=== PATIENT | female | born 1985 | race Caucasian/White ===

== ENCOUNTER 2018-06-09 07:36 | Emergency (ER) | payer BC, SELFPAY ==
[2018-06-09 07:38] VITALS: BP 179/90; PULSE 76; RESP 18; TEMP 36.4; O2SAT 99; BMI 40.6
--- NOTE | 2018-06-09 07:50 | ED.VISSUMM ---
- ER Visit Summary Date of Service: 06/09/18 Chief Complaint: Abdominal pain History of Present Illness: The patient is a [address] Sarkis lowry. She reports that she has upper abdominal pain that began proximal 22 hours ago. States that she has had this intermittently since February when she was diagnosed with gallstones. She has not seen a surgeon. She describes the pain as a sharp, cramping pain Zeta 10 hours and 7-10 currently. Is worsened by nothing is relieved by nothing. She has been nausea and vomited 5 times. No blood or emesis. Her last bowel was yesterday. No melena hematochezia. No dysuria or frequency. Last much previous 4 days ago. No fever chills. Patient reports approximately 2 hours prior to the onset of the pain she ate a salad with chicken favio and cookies. Physical Examination: Vitals: Stable. Afebrile. General: Well-nourished and well-developed. Head: Normocephalic atraumatic. Neck: Supple, no lymphadenopathy. No JVD. Nontender. Cardiovascular: Regular rate and rhythm. No murmurs. Respiratory: No respiratory distress. Clear to auscultation bilaterally. Abdominal: Soft, mild epigastric tenderness to palpation, nondistended, normal bowel sounds. No guarding, rebound, or peritoneal signs. Negative Miranda sign. Back: Nontender. Extremities: Nontender, no edema. Skin: Normal color, no rash. Neurologic: Alert and oriented ?3. Cranial nerves II through XII are intact. Normal strength and sensation. Psych: Normal affect. Test Results: CBC shows a white count of 13.6 with a normal differential. Chem-7 shows a glucose of 107. LFTs are normal. Lipase is normal. test is negative. Right upper quadrant ultrasound shows a normal distended gallbladder with a wall of 2.3 mm. No pericholecystic fluid. She does have gallstones. Common bile duct is 5.4 mm. Positive Miranda sign. Emergency Department Course and Treatment: Patient had an IV placed. She was given Toradol and Zofran IV. She continued to experience pain. She was given a dose of morphine and Zofran IV. She is resting comfortably. Treatment Plan: Patient reports her pain is resolved and would like to go home. She will be discharged with prescription for 10 [place] and Zofran. Instructed to follow-up with Dr. Marie as soon as possible for further evaluation and treatment. Return to the emergency department for any worsening symptoms. Disposition: To home in improved and stable condition. Impression: 1. Biliary colic. This note was generated with [employer] dictation software. It may contain incorrect words, spelling, and punctuation that were not noted in review of the chart prior to signing ED Disposition - Plan for ED Patient: Instructions: ED Abdominal Pain Gallstone Poss Prescriptions: Hydrocodone Bitart/Apap 5-325 [[place] 5MG-325MG] 1 tablet PO Q4H PRN PRN 2 Days #10 tablet PRN Reason: Pain Ondansetron [Zofran Odt] 4 mg PO Q8H PRN PRN #10 tablet PRN Reason: Nausea Referrals: Ameena Marie MD [STAFF PHYSICIAN] - As soon as possible
--- NOTE | 2018-06-09 07:53 | ED.DCSUM_ITS ---
- ER Visit Summary Date of Service: 06/09/18 Chief Complaint: Abdominal pain History of Present Illness: The patient is a [address] Sarkis lowry. She reports that she has upper abdominal pain that began proximal 22 hours ago. States that she has had this intermittently since February when she was diagnosed with gallstones. She has not seen a surgeon. She describes the pain as a sharp, cramping pain Zeta 10 hours and 7-10 currently. Is worsened by nothing is relieved by nothing. She has been nausea and vomited 5 times. No blood or emesis. Her last bowel was yesterday. No melena hematochezia. No dysuria or frequency. Last much previous 4 days ago. No fever chills. Patient reports approximately 2 hours prior to the onset of the pain she ate a salad with chicken favio and cookies. Physical Examination: Vitals: Stable. Afebrile. General: Well-nourished and well-developed. Head: Normocephalic atraumatic. Neck: Supple, no lymphadenopathy. No JVD. Nontender. Cardiovascular: Regular rate and rhythm. No murmurs. Respiratory: No respiratory distress. Clear to auscultation bilaterally. Abdominal: Soft, mild epigastric tenderness to palpation, nondistended, normal bowel sounds. No guarding, rebound, or peritoneal signs. Negative Miranda sign. Back: Nontender. Extremities: Nontender, no edema. Skin: Normal color, no rash. Neurologic: Alert and oriented ?3. Cranial nerves II through XII are intact. Normal strength and sensation. Psych: Normal affect. Test Results: CBC shows a white count of 13.6 with a normal differential. Chem- 7 shows a glucose of 107. LFTs are normal. Lipase is normal. test is negative. Right upper quadrant ultrasound shows a normal distended gallbladder with a wall of 2.3 mm. No pericholecystic fluid. She does have gallstones. Common bile duct is 5.4 mm. Positive Miranda sign. Emergency Department Course and Treatment: Patient had an IV placed. She was given Toradol and Zofran IV. She continued to experience pain. She was given a dose of morphine and Zofran IV. She is resting comfortably. Treatment Plan: Patient reports her pain is resolved and would like to go home. She will be discharged with prescription for 10 [place] and Zofran. Instructed to follow-up with Dr. Marie as soon as possible for further evaluation and treatment. Return to the emergency department for any worsening symptoms. Disposition: To home in improved and stable condition. Impression: 1. Biliary colic. This note was generated with [employer] dictation software. It may contain incorrect words, spelling, and punctuation that were not noted in review of the chart prior to signing ED Disposition - Plan for ED Patient: Instructions: ED Abdominal Pain Gallstone Poss Prescriptions: Hydrocodone Bitart/Apap 5-325 [[place] 5MG-325MG] 1 tablet PO Q4H PRN PRN 2 Days #10 tablet PRN Reason: Pain Ondansetron [Zofran Odt] 4 mg PO Q8H PRN PRN #10 tablet PRN Reason: Nausea Referrals: Ameena Marie MD [STAFF PHYSICIAN] - As soon as possible
[2018-06-09] MEDS: 0.9% Normal Saline 1,000 ML 1000 ML IV (08:01)
[2018-06-09] MEDS: Ondansetron 4 MG/2 ML Vial IV (08:01)
[2018-06-09] MEDS: Ketorolac 30 MG/ML Syringe IV (08:01)
[2018-06-09 08:16] LABS: Absolute Lymphocyte Count 3.83 X10^3/ul (0.83-4.51); Absolute Neutrophil Count 7.9 X10^3/uL (2.0-7.7); Basophil# 0.05 X10^3/uL; Basophil% 0.4 % (0-1); Eosinophil# 0.74 X10^3/uL; Eosinophils% 5.4 % (0-5); Hematocrit 42.8 % (37-47); Hemoglobin 14.2 g/dl (12.0-15.0); Lymphocyte # 3.83 X10^3/ul (4.0); Lymphocyte % 28.1 % (19-41); Mean Corp Hgb Conc 33.2 g/gl (32-36); Mean Corpuscular Hgb 29.9 pg (27.0-32.0); Mean Corpuscular Volume 90.1 fL (81-99); Mean Platelet Vol. 9.2 fl (6.2-12.0); Monocyte# 1.12 X10^3/uL; Monocyte% 8.2 % (0-10); Neutrophil # 7.86 X10^3/uL (2.7-7.7); Neutrophil % 57.7 % (47-70); Platelet Count 306 K/mm3 (150-450); RBC Distribution Width CV 13.5 % (11.6-14.6); RBC Distribution Width SD 45.1 fl (35.1-43.9); Red Blood Count 4.75 M/mm3 (4.2-5.4); White Blood Count 13.6 K/mm3 (4.4-11.0)
[2018-06-09 08:19] LABS: POSITIVE COUNT NO; POSITIVE DIFFERENTIAL NO; POSITIVE MORPHOLOGY NO
[2018-06-09 08:21] LABS: Internal QC Validated? YES +Cl - CLEAR BKGD; Pregnancy, Serum, hCG Quali. NEGATIVE Negative
[2018-06-09 08:28] LABS: ALB/GLOB Ratio 1.1 RATIO (0.9-2.4); AST(SGOT) 17 U/L (15-37); Alanine Aminotransfer ALT/SGPT 38 U/L (13-56); Albumin, Serum 4.3 g/dL (3.2-5.0); Alkaline Phosphatase 79 U/L (45-117); Anion Gap 7 (5-15); BUN 15 mg/dL (7-18); BUN/Creat Ratio 15.4 RATIO (10-20); Calcium,Total 9.2 mg/dL (8.5-10.1); Chloride 105 mmol/L (98-107); Creatinine, Serum 0.97 mg/dL (0.55-1.02); EST Glomerular Filtration Rate 70 mL/min (>60); Est Glom Filt Rate - Afr Amer 85 mL/min (>60); Estimated Creatinine Clearance 96.09 ml/min; Globulin 3.8 g/dL (2.2-4.2); Glucose 107 mg/dL (74-106); Lipase 87 U/L (73-393); Potassium 3.8 mmol/L (3.5-5.1); Protein, Total 8.1 g/dL (6.4-8.2); Sodium Level 138 mmol/L (136-145)
--- NOTE | 2018-06-09 08:40 | US_ITS ---
STUDY: ABDOMINAL ULTRASOUND - RIGHT UPPER QUADRANT REASON FOR VISIT: Female, 32 years old. One-day history of nausea and vomiting and epigastric pain. TECHNIQUE: Ultrasound evaluation of the right upper quadrant was performed with real-time and static estrada-scale imaging. TECHNICAL QUALITY: Adequate. COMPARISON: None. FINDINGS: Liver: The liver is enlarged and measures 22 cm. There is increased echogenicity consistent with fatty infiltration. The bile ducts are within normal limits. There is hepatic color flow. The direction of portal flow is hepatopetal. There is no demonstrated mass lesion. Gallbladder: Normal distended gallbladder. The gallbladder wall measures 2.3 mm. There is a positive sonographic Miranda's sign. There is no pericholecystic fluid. There are multiple echogenic structures within the gallbladder, consistent with multiple gallstones. Common Bile Duct (C.B.D.): The common bile duct measures 5.4 mm. Pancreas: Normal size of the head, body and tail of the pancreas. There is increased echogenicity of the pancreas. There is no demonstrated pancreatic mass or cyst. Right Kidney: Normal size of the right kidney. The right kidney measures 11.2 cm x 5.5 cm x 4.2 cm. Normal renal cortex. The right cortex measures 1.4 cm. There is no demonstrated renal mass or cyst. There is no right hydronephrosis. US/Gallbladder IMPRESSION: Hepatomegaly and fatty infiltration of the liver. Multiple gallstones. Electronically Signed: Mike Faith, at 10:33 EDT , Service support ,
[2018-06-09] MEDS: proMETHazine 25 MG/ML Syringe 6.25 MG IV (08:57)
[2018-06-09] MEDS: Morphine 4 MG/ML Syringe IV (08:57)
[2018-06-09 09:48] VITALS: RESP 18
[2018-06-09 10:56] VITALS: BP 123/74; PULSE 61; RESP 15; O2SAT 99
== END 2018-06-09 10:58 | disposition home or self-care (01) ==
PROVIDERS: Emergency Provider Emergency Medicine; Family Provider Family Medicine; PCP Family Medicine
DX: K80.70 Calculus of gallbladder and bile duct without cholecystitis without obstruction (principal); Z72.0 Tobacco use
CPT/HCPCS: 76705; 80053; 83690; 84703; 85025; 96361; 96374; 96375; 99283; J7030; A4216; J2405

== ENCOUNTER 2018-06-25 07:53 | Day surgery (SDC) | payer BC, SELFPAY ==
--- NOTE | 2018-06-19 18:44 | PCM.HP.BLA ---
History and Physical Date of Admission: 06/18/18 Mercedes Rivera 1985 ? ? CHIEF COMPLAINT: abdominal pain ? HPI: The patient is a 32 year old female presents with epigastric abdominal pain. Has noted this pain intermittently since February of this year. Also accompanying symptoms of nausea and occasional emesis. Presently has no pain. Mother also had gallbladder disease. Denies obstructive biliary symptoms such as jaundice or icterus. Denies fevers. Denies weight loss. [facility] US 06/09/18 - no pericholecystic fluid, multiple echogenic structures within the gallbladder, CBD 5.4mm ?? PAST MEDICAL HISTORY ? Thyroid activity decreased ? ? PAST SURGICAL HISTORY ? APPENDECTOMY ? 2014 ? SECTION HX ? ? ? D&C, DIAG AND/OR THERAPEUTIC ? Multiple ? Dilation & curettage ?? PAST INJURIES Denies head injuries, denies history of fractures ? ? Current Outpatient Medications: levothyroxine (SYNTHROID) 125 mcg tablet Take 125 mcg by mouth daily before breakfast. ? ? ALLERGIES: Patient has no known allergies. ? PERSONAL HISTORY: Social History Socioeconomic History Marital status: Single Spouse name: Not on file Number of children: Not on file Years of education: Not on file Highest education level: Not on file Social Needs Financial resource strain: Not on file Food insecurity - worry: Not on file Food insecurity - inability: Not on file Transportation needs - medical: Not on file Transportation needs - non-medical: Not on file Occupational History Not on file Tobacco Use Smoking status: Current Every Day Smoker Packs/day: 0.50 Years: 15.00 Pack years: 7.5 Types: Cigarettes Start date: 06/18/2002 Smokeless tobacco: Never Used Substance and Sexual Activity Alcohol use: No Drug use: No Sexual activity: Not on file Comment: Not asked Other Topics Concerns: Not on file Social History Narrative Not on file ? FAMILY HISTORY: Mother had gallbladder disease ? ? REVIEW OF SYSTEMS: General - denies fevers Cardiovascular - denies chest pain, denies history of [place] Pulmonary - denies shortness of breath, denies coughing up blood Gastrointestinal - see HPI Neurological - denies seizures Genitourinary - denies blood in urine Hematological - denies spontaneous/prolonged bleeding Skin - denies nonhealing skin wounds Musculoskeletal - denies chronic joint/back pain Endocrine - has hypothyroidism, denies diabetes Psychological ? denies hallucinations ? PHYSICAL EXAMINATION: General: The patient is 32 year old female, well nourished, well hydrated in no acute distress. The patient is oriented to time, place, and person. VITALS: Blood pressure 114/84, pulse 66, weight (!) 137.4 kg (303 lb). Ht: 6' Head ? Normocephalic. EOM intact with sclera clear and no icterus noted. Wearing glasses. Mouth with mucus membranes moist. Neck - supple with no jugular venous distention noted. Trachea is midline. Lungs ? clear to auscultation. Normal breath sounds. No rales/rhonchi/wheezing noted. No labored breathing noted, such as retractions. Heart ? normal S1 and S2 auscultated. No rubs/clicks/murmurs noted. Regular rate. Abdomen ? soft and benign and obese. No tenderness noted. Normal bowel sounds. No abdominal bruits noted. Difficult to determine if any masses due to body habitus Extremities ? no calf tenderness noted. No pitting edema noted Skin ? normal skin integrity. Neurological ? gait normal, no focal deficits noted Psych ? calm and appropriate RADIOLOGIC STUDIES: As Noted ? ? IMPRESSION: cholelithiasis ? PLAN: I have discussed the above with the patient. I have offered laparoscopic cholecystectomy, possible cholangiograms. I have explained the procedure to the patient. I have counseled the patient as to the risks of the procedure, including but not limited to: infection, bleeding, injury to any blood vessels/nerves, scar tissue, injury to any intrabdominal organs, injury to bowel/bladder, injury to the common bile duct/biliary tree, bile leakage, intraabdominal abscess/bleeding, hernias at incisional sites, wound infections, complications of anesthesia, etc. ? the patient understands. The patient wishes to proceed. I have answered all questions to the patient?s satisfaction and the patient has no further questions. . Diagnoses: (R10.13) Epigastric abdominal pain (primary encounter diagnosis) (K80.20) Calculus of gallbladder without cholecystitis without obstruction (E66.01) Morbid obesity (HCC) Return to Clinic: The patient is instructed to follow-up with me after the procedure. ? Ameena Marie MD
--- NOTE | 2018-06-25 08:06 | EKG12_ITS ---
Test Reason : PREOP Blood Pressure : / mmHG Vent. Rate : 068 BPM Atrial Rate : 068 BPM P-R Int : 188 ms QRS Dur : 090 ms QT Int : 424 ms P-R-T Axes : 067 089 046 degrees QTc Int : 450 ms Normal sinus rhythm Normal ECG Confirmed by HI SIGALA, MAUREEN ([id number]), advertising editor DEBBIE KENDRICK ([id number]) on 06/28/2018 4:32:40 PM Referred By: Ameena Marie Confirmed By:MAUREEN DO MD
[2018-06-25 08:40] VITALS: BP 132/70; PULSE 60; RESP 16; TEMP 36.4; O2SAT 97; BMI 40.8
--- NOTE | 2018-06-25 09:25 | GALL_PTH ---
PATIENT: SHREI MISTRY LOC: [facility] [place] U#:[id number] AGE/SX: 32/F ROOM: RE06/25/[address]: Dr. Ameena Marie MD : 1985 BED: DIS: 06/25/2018 SPEC #: [id number] RECD: 06/25/18 13:12 STATUS: JESSICA RELei #: [id number] CLIVE: 06/25/18 09:[address]: Ameena Marie DEPT: SURGICAL PATHOLOGY RECD BY: Kyle Johnson ENTERED: 06/25/18 14:15 SP TYPE: CLIFF[facility] YOUNG DR: Dr. Job Loving MD Tissues: Gallbladder, NOS Procedures: Surgery Specimen Level III HEADER OPERATION: Laparoscopic cholecystectomy PRE-OP DIAGNOSIS: Epigastric abdominal pain; calculus of gallbladder without cholecystitis or obstruction TISSUE SUBMITTED: Gallbladder MICROSCOPIC DIAGNOSIS Gallbladder, cholecystectomy: Cholesterolosis, chronic cholecystitis and cholelithiasis. AM:freeman 06/29/18 MICROSCOPIC DESCRIPTION Slides are reviewed. GROSS DESCRIPTION Received is one container labeled with the patient's name and designated gallbladder. The specimen consists of a gallbladder measuring 10 x 2.5 x 2.5 cm. The external surface is smooth and glistening. Focally, it is granular, hemorrhagic and contains cautery artifact. The lumen of the gallbladder contains yellow-green mucoid bile and four ovoid yellow calculi averaging 1.2 cm each. The mucosa is bile-stained with chalky yellow discoloration. The gallbladder wall averages 0.2 cm in thickness and is free of mass lesions. Dietary Server sections of the gallbladder and the cystic duct are submitted in one cassette. / AM:freeman 06/28/18 TC:3 CPT: 00835
--- NOTE | 2018-06-25 10:23 | PCM.OPRPT ---
Report of Operation Date of Procedure: 06/25/18 Pre-Operative Diagnosis: cholelithiasis, epigastric abdominal pain Post-Operative Diagnosis: epigastric abdominal pain, cholelithiasis, chronic cholecystitis, fatty liver changes Surgery/Procedure Performed:: laparoscopic cholecystectomy Description of Surgical Findings:: cholangiogram not done, appeared as short take off of cystic duct and was also embedded in enlarged fatty liver chairman & chief executive officer: Ashly Shah Type of Anesthesia:: General Anesthesiologist: Vin Nuñez Specimen's removed: gallbladder and contents Estimated Blood Loss (mL): < 10 Fluids Replaced: 800 cc RL Description of Procedure: After informed consent was given, the patient was brought to the Operating Room. Appropriate time out protocol was followed. She was then placed in the supine position. The patient was then placed under general endotracheal anesthesia. The abdomen was then prepped with a sterile surgical skin preparation and sterile surgical drapes were placed. A skin fold superior to the umbilical dimple was grasped with penetrating clamps and the skin and subcutaneous tissues were infiltrated with 0.25% marcaine with epinephrine. A skin incision was then made with a 15 blade scalpel. The anterior abdominal wall was elevated and a Veress needle was carefully inserted into the intraabdominal cavity. It was checked to be in the proper position with a normal saline drop test. A CO2 pneumoperitoneum was then created. Once this was achieved, then the Veress needle was removed and an 11mm trocar was placed in its stead. A 10mm laparoscope was then inserted into the trocar and careful attention was directed to the intraabdominal contents. There was no evidence of injury to any intraabdominal organs from insertion of the Veress needle or the trocar. Under direct visualization, a 5mm subxiphoid trocar and two lateral 5mm right subcostal trocars were placed. The skin and subcutaneous tissues at these sites were infiltrated with 0.25% marcaine with epinephrine prior to placement of these trocars. Attention was then directed to the right upper quadrant of the abdomen. The liver had changes consistent with fatty liver. There were dense fibrosis around the area of the triangle of Calot. Graspers were placed in the lateral trocars to grasp the distal aspect of the gallbladder and direct it cephalad and to grasp the gallbladder at Chatman?s pouch and direct it laterally. Dissection then began on the proximal gallbladder continuing down to the area of the triangle of Calot to bluntly dissect out the cystic duct. The neck of the gallbladder was identified and blunt dissection continued to dissect out a segment of the cystic duct. A clip was then placed on the neck of the gallbladder. Of note, this area was deeply embedded within a large fatty liver. Two clips were placed proximally and the cystic duct was then transected. The cystic artery was visualized and bluntly isolated and then two clips were placed proximally and one clip distally and then it was transected between the proximal and distal clips. The gallbladder was then from the liver bed using electrocautery and thus able to be brought out of the umbilical port. It was then forwarded to pathology for analysis. The liver bed was carefully examined. There was no evidence of bile leakage or bleeding. The cystic duct stump and cystic artery stump had their clips intact and there was no evidence of bile leakage or bleeding. Kathy was applied to the area. The remainder of the abdomen was grossly normal. The CO2 was released and all trocars removed intact. The periumbilical fascia was approximated with a [id number] 0 vicryl suture. All skin incision were closed with 4-0 monocryl in a subdermal fashion. Cavilol and Steristrips were used to reinforce the skin closure. Sterile dressings were applied to all wounds. The patient was extubated and brought to the Recovery Room in stable condition. - Complications none noted - Admit VTE Documentation VTE Present on Admission: Yes VTE Mechan Device Prophylaxis: SCD's
[2018-06-25] MEDS: Bupiv/Epi 0.25% 30 ML Vial (10:25)
--- NOTE | 2018-06-25 10:29 | PCM.DC.GB ---
Discharge Diet: No Restrictions - drink plenty of fluids avoid carbonated beverages for a couple of days Discharge Activity: Return to Normal Activity, May not drive while taking narcotic pain medications. Lifting Restrictions: no lifting/pushing/pulling greater than 20 pounds for 2 weeks Call your doctor if your incision/area has: Continuous Slow Oozing, Foul Smelling Discharge Call your doctor if you observe: Fever of 101 or Higher Additional Dressing/Incision Instructions:: Leave dressings in place. May get wet in shower. Do not soak - no tub baths/swimming Additional Instructions: recommended following medication regimen for pain: take 600 mg ibuprofen then in 3 hours take 650 mg acetaminophen, then in 3 hours take 600 mg ibuprofen, then in 3 hours take 650 mg acetaminophen, etc. for about 2 days take narcotic pain medication for breakthrough pain and also at night Allergies/Adverse Reactions: Allergies No Known Allergies Allergy (Verified 06/24/18 15:24) Medications to take at Discharge Levothyroxine [Synthroid] 125 mcg PO DAILY 06/09/18 Hydrocodone/Acetaminophen [[place] 5-325 Tablet] 1 ea PO Q8 PRN 5 Days #15 tab 06/25/18 The following prescriptions were given: Hydrocodone/Acetaminophen [[place] 5-325 Tablet] 1 ea PO Q8 PRN 5 Days #15 tab PRN Reason: Mod-Severe Pain (-11/18) Primary Care Physician: Job Loving MD [Primary Care Provider] - Test Results: Test results from this visit will be discussed in further detail at your follow-up appointment, if applicable. Please Follow Up With: Ameena Marie MD - call When: to be seen in 7-10 days, please call for date and time, thank you
[2018-06-25 10:36] VITALS: BP 132/70; BP 144/74; PULSE 86; RESP 16; TEMP 36.1; O2SAT 93
[2018-06-25 10:45] VITALS: BP 118/71; BP 132/70; PULSE 65; RESP 16; O2SAT 97
[2018-06-25 11:00] VITALS: BP 120/77; BP 132/70; PULSE 67; RESP 18; TEMP 36.1; O2SAT 97
[2018-06-25] MEDS: HYDROcodone Bitartrate/Apap 5/325 Tablet PO (12:00)
[2018-06-25 14:05] VITALS: BP 126/77; BP 132/70; PULSE 67; RESP 16; TEMP 36.6; O2SAT 97
== END 2018-06-25 14:20 | disposition home or self-care (01) ==
LOC: SDC 07:53 → AC 07:55
PROVIDERS: Anesthesiology; Family Provider Family Medicine; PCP Family Medicine; Referring Provider Surgery; Visit Provider Surgery
PROC: (CPT 47610; principal; 2018-06-25 09:05)
DX: K80.10 Calculus of gallbladder with chronic cholecystitis without obstruction (principal); K76.0 Fatty (change of) liver, not elsewhere classified; E06.9 Thyroiditis, unspecified; E66.01 Morbid (severe) obesity due to excess calories; F17.210 Nicotine dependence, cigarettes, uncomplicated; Z68.41 Body mass index [BMI] 40.0-44.9, adult; Z79.899 Other long term (current) drug therapy
CPT/HCPCS: 00790; 47562; 84443; 88304; 93005; J7120; J2405